=== PATIENT | female | born 1955 | race Caucasian/White ===

== ENCOUNTER → 2016-10-15 10:29 | Outpatient (CLI) | payer MEDICARE, MEDICAID | END | disposition home or self-care (01) | LOC: D.LABREF 10:29 | DX: I50.9 Heart failure, unspecified (principal) ==

== ENCOUNTER → 2017-09-23 10:03 | Outpatient (CLI) | payer MEDICARE, OTHER ==
[~2017-09-23 10:03] MED LIST: ATIVAN1 MG; BUMEX2 MG PO; FEMARA2.5 MG PO; FEXOFENADINE H180 MG PO; GLIMEPIRIDE2 MG; LIPITOR40 MG PO; LOPRESSOR25 MG PO; NORCO 7.5/325 T1 TA1 PO; TOUJEO SOL300 UNIT/1 SC; VITAMIN D250000 UNIT PO; ZOLOFT100 MG PO
[2017-11-20 13:20] VITALS: BMI 37.6
== END | disposition home or self-care (01) ==
LOC: D.LABREF 10:03
DX: J44.1 Chronic obstructive pulmonary disease with (acute) exacerbation (principal); I50.9 Heart failure, unspecified

== ENCOUNTER → 2017-10-14 12:08 | Outpatient (CLI) | payer MEDICARE, OTHER ==
--- NOTE | ~2017-10-14 | EC ---
PATIENT:HAZEL GARCIA DATE OF SERVICE: 10/14/17 SEX: F MEDICAL RECORD: [id number] DATE OF : 53 LOCATION:D.[facility] AGE OF PATIENT: 62 ADMISSION DATE: 10/14/17 REFERRING PHYSICIAN: INTERPRETING PHYSICIAN: CRISTIANE RAMON MD ECHOCARDIOGRAM REPORT ECHO CHARGES 4 ECHO COMPLETE Date: 10/14 CLINICAL DIAGNOSIS: ASSESS LV FUN AND EFFUSION ECHOCARDIOGRAPHIC MEASUREMENTS (adult normal given) AC root (d.<3.7cm) 3.4 cm LV Septum d (<1.2 cm> 1.7 cm Valve Excursion 1.0 cm LV Septum (systole) 1.8 cm Left Atria (s.<4.0cm> 4.1 cm LVPW d(<1.2cm) 1.4 cm RV (d.<2.3cm) 4.3 cm LVPW (sytole) 1.6 cm LV diastole(<5.6CM) 4.4 cm MV E-F(>70mm/sec) cm LV systole 3.3 cm LVOT Diameter 1.6 cm MV exc.(>10mm) cm Est.ejection fraction (50-75%) % DOPPLER: LVIT cm/sec A 105 cm/sec E 85.0 cm/sec LA cm/sec RVSP 36 mmHg LVOT 138 cm/sec AOP1/2T m/s Asc. 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 Ramon TAPE# PACS Pericardial Effusion Y DATE OF SERVICE: PROCEDURE: Transthoracic echocardiogram. FINDINGS: 1. Left ventricle has moderate concentric left ventricular hypertrophy with inflow characteristics consistent with diastolic dysfunction. Ejection fraction is 65%. There is no obvious regional wall motion abnormalities seen. It was a difficult study. Endocardial structures were not sharply visualized. 2. The right ventricle is dilated with good function. ECHOCARDIOGRAM REPORT [id number] JOSEHAZEL Hendricks 3. The left atrium is mildly dilated with good function. 4. The aortic valve has mild thickening. Mild aortic stenosis, peak pressure gradient of 20 mmHg with no obvious aortic insufficiency. 5. The mitral valve appears to be structurally normal. There is no obvious mitral regurgitation. 6. The tricuspid valve has mild tricuspid regurgitation. RVSP is 30-35 mmHg. 7. The pulmonic valve is not well visualized, but appears to be normal by Doppler interrogation. 8. Pericardium has a moderate pericardial effusion. There is no evidence of diastolic right atrial collapse or diastolic limitations on flow, although rest spirometry was not performed. By visual inspection, does not have any criteria of tamponade. TRANSINT:[id number] Voice Confirmation ID: [id number] DOCUMENT ID: [id number] CRISTIANE RAMON MD at 0942 CC: [id number] DICTATION DATE: 10/16/17 0953 MINE EXPERT: 10/16/17 1200 [facility] CLI 10/14/17 [facility] [address] [place] [address]
[2017-11-20 13:20] VITALS: BMI 37.6
== END | disposition home or self-care (01) ==
LOC: D.ECHO 12:08
DX: I50.9 Heart failure, unspecified (principal)

== ENCOUNTER 2017-11-18 10:30 | Inpatient (IN) | payer MEDICARE, OTHER ==
[~2017-11-18] VITALS: Ht 162.6 cm; Wt 100.0 kg
--- NOTE | ~2017-11-18 | OP ---
PATIENT NAME: HAZEL GARCIA MEDICAL RECORD: [id number] :53 LOCATION:D.[facility] D.[facility] ADMISSION DATE:11/19/17 SURGEON: ANDREW SON MD DATE OF OPERATION: 11/19/2017 SURGEON: Andrew Son MD BALANCE RECESSER: MAXX Salinas OPERATION PERFORMED: Subxiphoid pericardial window. PREOPERATIVE DIAGNOSIS: Pericardial effusion, symptomatic. POSTOPERATIVE DIAGNOSIS: Pericardial effusion, symptomatic. ANESTHESIA: General endotracheal anesthesia. ESTIMATED BLOOD LOSS: Minimal. COMPLICATIONS: None. SPECIMEN: Pericardial fluid for cytology and for cultures, cell counts, and chemistry. CONDITION: Stable. DISPOSITION: ICU. OPERATIVE FINDINGS: 1. Transesophageal echocardiography confirmed a relatively circumferential pericardial effusion and after complete drainage. 2. After drainage of the fluid, the systolic pressure increased by 30 mm. 3. A 1 x 1 cm pericardial biopsy performed. A total of 500 cc of proteinaceous material that congealed in the specimen tubes was removed completely and 2 separate drains were placed, one on the diaphragmatic surface and one anterior. Marcaine was used in the wound for local pain control. OPERATIVE INDICATION: Dyspnea, pericardial effusion, history of breast cancer. DESCRIPTION OF PROCEDURE: The patient was brought to the operating room. The patient was prepped and draped. Vertical incision of the xiphoid was made. A portion of the xiphoid was removed, upward pressure left costal margin was performed. The inferior surface of the diaphragm was identified and the fluid was aspirated. The pericardium was incised and a 1 x 1 cm pericardial biopsy was removed. Fluid was removed. Drains were placed through separate stab wounds and placed within the pericardium. Hemostasis was ensured. The fascia was closed. Subcutaneous tissue was closed with subcuticular. Dermabond was placed. The needle and sponge counts were correct. The patient went to the ICU in stable condition. TRANSINT:[id number] Voice Confirmation ID: [id number] DOCUMENT ID: [id number] OPERATIVE REPORT [id number] HAZEL GARCIA DANIEL W MD at 0751 CC: AKIRA CONTRERAS MD and KEVIN FLOOD MD [id number] DICTATION DATE: 11/19/17 267 [place] MATE: 11/19/17 1842 ADM IN [facility] [address] [place] [address]
--- NOTE | ~2017-11-18 | TEE ---
PATIENT:HAZEL GARCIA MEDICAL RECORD: [id number] LOCATION:D.M2 D.210 AGE OF PATIENT: 62 ADMISSION DATE: 11/19/17 SEX: F REFERRING PHYSICIAN: INTERPRETING PHYSICIAN: BOBY OLIVARES MD TRANSESOPHAGEAL ECHOCARDIOGRAM Date: 11/19/17 SHIRA CHARGE Y INDICATIONS: PERICARDIAL WINDOW PREMEDICATIONS: PATIENT'S RESPONSE PROCEDURE DOPPLER MEASUREMENTS: LVIT LA PA RA LVOT RVOT Asc. 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 Olivares Youth Accommodation Support Worker: 1 [place] BROWN COMMENTS: DATE OF SERVICE: PROCEDURE: Transesophageal echo evaluation during pericardial window. FINDINGS: 1. Left ventricular chamber size is within normal limits. Left ventricular systolic function is normal. Overall ejection fraction estimated at 55% to 60%. 2. Left atrium, right atrium, and right ventricle chamber sizes are within normal limits. TRANSESOPHAGEAL ECHOCARDIOGRAM REPORT [id number] HAZEL GARCIA 3. Valvular structures have normal structure and motion. 4. Large pericardial effusion is present. Pericardial window was successfully performed. TRANSINT:[id number] Voice Confirmation ID: [id number] DOCUMENT ID: [id number] at 0847 CC: [id number] DICTATION DATE: 11/20/17 1254 [place] ASSISTANT: 11/20/17 1259 ADM IN [facility] [address] [place] [address]
[2017-11-19] VITALS (14 sets, daily range): BP systolic 101–149; BP diastolic 43–66; BMI 37.6
[2017-11-19 09:53] LABS: BASOPHILS 0.3 % (0-2); EOSINOPHILS 2.4 % (0-7); HEMATOCRIT 36.2 % (36.0-48.0); HEMOGLOBIN 11.5 g/dL (12-16); IMMATURE GRANULOCYTES 0.1 % (0-5); LYMPHOCYTES 22.9 % (15-50); MCH 27.9 pg (26.0-34.0); MCHC 31.8 g/dL (31.0-37.0); MCV 87.9 fL (80.0-100.0); MEAN PLATELET VOLUME 12.1 fL (7.4-10.4); NEUTROPHILS 68.3 % (40-80); PLATELET COUNT 180 10x3/uL (130-400); RBC 4.12 10x6/uL (4.00-5.40); RDW 16.1 % (11.5-14.5); WBC 7.8 10x3/uL (4.8-10.8)
[2017-11-19 10:10] LABS: INR 1.09 (0.85-1.17); PROTIME 13.7 SECONDS (11.6-15.0)
[2017-11-19 10:11] LABS: APTT 29.3 SECONDS (22.8-39.4)
[2017-11-19 10:13] LABS: ALBUMIN 3.7 g/dL (3.4-5.0); BILIRUBIN - TOTAL 0.39 mg/dL (0.2-1.3); CALCIUM 9.8 mg/dL (8.5-10.1); CREATININE - SERUM 1.6 mg/dL (0.6-1.3); POTASSIUM - SERUM 3.9 mmol/L (3.5-5.1); PROTEIN - SERUM 7.5 g/dL (6.4-8.2)
[2017-11-19 10:15] LABS: ANION GAP 9.9 mmol/L (8-16)
[2017-11-19] MEDS ORDERED: LOPRESSOR25 MG PO (10:55)
[2017-11-19] MEDS ORDERED: FEXOFENADINE H180 MG PO (10:56)
[2017-11-19] MEDS ORDERED: FEMARA2.5 MG PO (10:56)
[2017-11-19] MEDS ORDERED: BUMEX2 MG PO (10:57)
[2017-11-19] MEDS ORDERED: ZOLOFT100 MG PO (10:58)
[2017-11-19] MEDS ORDERED: GLIMEPIRIDE2 MG (10:58)
[2017-11-19] MEDS ORDERED: LIPITOR40 MG PO (10:59)
[2017-11-19] MEDS ORDERED: TOUJEO SOL300 UNIT/1 SC (11:00)
[2017-11-19] MEDS ORDERED: VITAMIN D250000 UNIT PO (11:01)
[2017-11-19] MEDS ORDERED: NORCO 7.5/325 T1 TA1 PO (11:02)
[2017-11-19] MEDS ORDERED: ATIVAN1 MG (11:03)
[2017-11-19 17:54] LABS: EOS BF 3 %; MACROPHAGES BF 12 %; NEUT - BF 32 %
[2017-11-20] VITALS (14 sets, daily range): BP systolic 95–131; BP diastolic 42–83; Ht 162.6 cm; Wt 100.0 kg
[2017-11-20 04:44] LABS: HEMOGLOBIN 11.6 g/dL (12-16); MCHC 31.4 g/dL (31.0-37.0); MCV 89.2 fL (80.0-100.0); MEAN PLATELET VOLUME 12.8 fL (7.4-10.4); RBC 4.15 10x6/uL (4.00-5.40); RDW 16.6 % (11.5-14.5)
[2017-11-20 05:02] LABS: WBC 16.1 10x3/uL (4.8-10.8)
[2017-11-20 05:12] LABS: ALBUMIN 3.1 g/dL (3.4-5.0); ANION GAP 12.9 mmol/L (8-16); BILIRUBIN - TOTAL 0.48 mg/dL (0.2-1.3); CALCIUM 8.7 mg/dL (8.5-10.1); CARBON DIOXIDE 33.5 mmol/L (21.0-32.0); CREATININE - SERUM 1.6 mg/dL (0.6-1.3); POTASSIUM - SERUM 3.4 mmol/L (3.5-5.1); PROTEIN - SERUM 6.8 g/dL (6.4-8.2)
[2017-11-20 15:15] LABS: APPEARANCE CLEAR (CLEAR); BILIRUBIN NEGATIVE (NEGATIVE); COLOR YELLOW (YELLOW); GLUCOSE NEGATIVE (NEGATIVE); KETONE NEGATIVE (NEGATIVE); NITRITE NEGATIVE (NEGATIVE); PROTEIN NEGATIVE (NEGATIVE); SPECIFIC GRAVITY 1.015 (1.005-1.020); UROBILINOGEN NORMAL (NORMAL)
[2017-11-20 16:08] LABS: ANION GAP 12.3 mmol/L (8-16); CALCIUM 8.9 mg/dL (8.5-10.1); CARBON DIOXIDE 34.4 mmol/L (21.0-32.0); POTASSIUM - SERUM 3.7 mmol/L (3.5-5.1)
[2017-11-20 21:08] LABS: AFB SPECIMEN PROCESSING Not Indicated (())
[2017-11-21 00:05] VITALS: BP 107/60
[2017-11-21 04:39] VITALS: BP 89/42
[2017-11-21 05:51] LABS: HEMATOCRIT 32.3 % (36.0-48.0); HEMOGLOBIN 10.1 g/dL (12-16); MCH 27.4 pg (26.0-34.0); MCHC 31.3 g/dL (31.0-37.0); MCV 87.5 fL (80.0-100.0); MEAN PLATELET VOLUME 11.9 fL (7.4-10.4); RBC 3.69 10x6/uL (4.00-5.40); RDW 16.8 % (11.5-14.5)
[2017-11-21 05:53] LABS: WBC 11.1 10x3/uL (4.8-10.8)
[2017-11-21 06:21] LABS: ALBUMIN 2.8 g/dL (3.4-5.0); ANION GAP 8.9 mmol/L (8-16); BILIRUBIN - TOTAL 0.6 mg/dL (0.2-1.3); CARBON DIOXIDE 33.9 mmol/L (21.0-32.0); CREATININE - SERUM 2.4 mg/dL (0.6-1.3); POTASSIUM - SERUM 3.8 mmol/L (3.5-5.1); PROTEIN - SERUM 6.3 g/dL (6.4-8.2)
[2017-11-21 08:02] VITALS: BP 127/64
[2017-11-21 11:11] VITALS: BP 94/49
[2017-11-21 13:17] LABS: FUNGUS STAIN Final report (())
[2017-11-21 15:19] VITALS: BP 118/54
[2017-12-17 06:15] LABS: FUNGUS MYCOLOGY CULTURE Final report (())
[2018-01-09 13:20] LABS: ACID FAST CULTURE Negative (()); ACID FAST SMEAR Negative (())
== END 2017-11-21 16:12 | disposition home or self-care (01) | DRG 272 ==
LOC: D.SDCHOLD 10:30 → D.ICU 11-19 08:10 → D.SDCHOLD 11-19 10:30 → D.CVICU 11-19 15:19 → D.ICU 11-20 11:36 → D.M2 11-20 20:43
PROVIDERS: Internal Medicine Hematology & Oncology; Thoracic Surgery (Cardiothoracic Vascular Surgery)
PROC: 0W9D00Z Drainage of Pericardial Cavity with Drainage Device, Open Approach (ICD-10-PCS; 2017-11-19)
PROC: 02BN0ZX Excision of Pericardium, Open Approach, Diagnostic (ICD-10-PCS; 2017-11-19)
PROC: B245ZZ4 Ultrasonography of Left Heart, Transesophageal (ICD-10-PCS; principal; 2017-11-19 13:00)
DX: I31.3 Pericardial effusion (noninflammatory) (principal); E11.9 Type 2 diabetes mellitus without complications; I10 Essential (primary) hypertension; F41.8 Other specified anxiety disorders; K21.9 Gastro-esophageal reflux disease without esophagitis; E66.01 Morbid (severe) obesity due to excess calories; Z68.37 Body mass index [BMI] 37.0-37.9, adult; R33.9 Retention of urine, unspecified; R94.4 Abnormal results of kidney function studies; D72.829 Elevated white blood cell count, unspecified; Z85.3 Personal history of malignant neoplasm of breast; Z87.891 Personal history of nicotine dependence

== ENCOUNTER → 2017-11-24 19:38 | Outpatient (CLI) | payer MEDICARE, OTHER ==
[2017-11-20 13:20] VITALS: BMI 37.6
[2017-11-24 20:17] LABS: BASOPHILS 0.2 % (0-2); EOSINOPHILS 3.5 % (0-7); HEMATOCRIT 34.3 % (36.0-48.0); HEMOGLOBIN 10.9 g/dL (12-16); IMMATURE GRANULOCYTES 0.2 % (0-5); LYMPHOCYTES 18.8 % (15-50); MCH 28.1 pg (26.0-34.0); MCHC 31.8 g/dL (31.0-37.0); MCV 88.4 fL (80.0-100.0); MEAN PLATELET VOLUME 13.3 fL (7.4-10.4); MONOCYTES 5.8 % (2-11); NEUTROPHILS 71.5 % (40-80); RBC 3.88 10x6/uL (4.00-5.40); RDW 16.2 % (11.5-14.5); WBC 8.2 10x3/uL (4.8-10.8)
[2017-11-24 20:24] LABS: PLATELET COUNT 181 10x3/uL (130-400)
[2017-11-24 20:28] LABS: ANION GAP 10.3 mmol/L (8-16); CALCIUM 9.1 mg/dL (8.5-10.1); CARBON DIOXIDE 36.1 mmol/L (21.0-32.0); CREATININE - SERUM 1.1 mg/dL (0.6-1.3); POTASSIUM - SERUM 4.4 mmol/L (3.5-5.1)
== END | disposition home or self-care (01) ==
LOC: D.LABREF 19:38
PROVIDERS: Internal Medicine Cardiovascular Disease
DX: I50.9 Heart failure, unspecified (principal); I31.4 Cardiac tamponade

== ENCOUNTER → 2017-11-27 14:28 | Outpatient (CLI) | payer MEDICARE, OTHER ==
[2017-11-20 13:20] VITALS: BMI 37.6
[2017-11-27 14:45] LABS: HEMATOCRIT 34.4 % (36.0-48.0); HEMOGLOBIN 10.6 g/dL (12-16); MCHC 30.8 g/dL (31.0-37.0); MCV 87.8 fL (80.0-100.0); MEAN PLATELET VOLUME 10.7 fL (7.4-10.4); RBC 3.92 10x6/uL (4.00-5.40); RDW 16.4 % (11.5-14.5); WBC 7.9 10x3/uL (4.8-10.8)
[2017-11-27 14:58] LABS: ALBUMIN 2.9 g/dL (3.4-5.0); BILIRUBIN - TOTAL 0.3 mg/dL (0.2-1.3); CALCIUM 9.1 mg/dL (8.5-10.1); CARBON DIOXIDE 37.7 mmol/L (21.0-32.0); CREATININE - SERUM 1.1 mg/dL (0.6-1.3); POTASSIUM - SERUM 3.7 mmol/L (3.5-5.1); PROTEIN - SERUM 6.9 g/dL (6.4-8.2)
== END | disposition home or self-care (01) ==
LOC: D.LAB 09:30 → D.RAD 10:00 → D.LAB 14:28
PROVIDERS: Internal Medicine Cardiovascular Disease
DX: I31.3 Pericardial effusion (noninflammatory) (principal); D64.9 Anemia, unspecified

== ENCOUNTER → 2017-12-08 21:55 | Outpatient (CLI) | payer MEDICARE, OTHER ==
[2017-11-20 13:20] VITALS: BMI 37.6
[2017-12-08 22:21] LABS: BASOPHILS 0.6 % (0-2); EOSINOPHILS 2.1 % (0-7); HEMOGLOBIN 12.1 g/dL (12-16); IMMATURE GRANULOCYTES 0.2 % (0-5); LYMPHOCYTES 23.2 % (15-50); MCH 27.2 pg (26.0-34.0); MCV 87.6 fL (80.0-100.0); MEAN PLATELET VOLUME 12.4 fL (7.4-10.4); MONOCYTES 6.3 % (2-11); NEUTROPHILS 67.6 % (40-80); RBC 4.45 10x6/uL (4.00-5.40); RDW 16.7 % (11.5-14.5); WBC 10.2 10x3/uL (4.8-10.8)
[2017-12-08 22:26] LABS: PLATELET COUNT 290 10x3/uL (130-400)
[2017-12-08 22:49] LABS: ANION GAP 11.6 mmol/L (8-16); CALCIUM 9.3 mg/dL (8.5-10.1); CARBON DIOXIDE 31.6 mmol/L (21.0-32.0); CREATININE - SERUM 1.2 mg/dL (0.6-1.3); POTASSIUM - SERUM 4.2 mmol/L (3.5-5.1)
== END | disposition home or self-care (01) ==
LOC: D.LABREF 21:55
PROVIDERS: Internal Medicine Cardiovascular Disease
DX: I50.9 Heart failure, unspecified (principal)

== ENCOUNTER 2018-03-18 10:24 | Outpatient (CLI) | payer MEDICARE, OTHER ==
[~2018-03-18] VITALS: Ht 162.6 cm; Wt 90.5 kg
[2018-03-18 10:51] LABS: BASOPHILS 0.4 % (0-2); EOSINOPHILS 2.4 % (0-7); HEMATOCRIT 32.9 % (36.0-48.0); HEMOGLOBIN 10.2 g/dL (12-16); LYMPHOCYTES 27.3 % (15-50); MCH 23.9 pg (26.0-34.0); MEAN PLATELET VOLUME 10.6 fL (7.4-10.4); MONOCYTES 2.8 % (2-11); NEUTROPHILS 67.1 % (40-80); RBC 4.27 10x6/uL (4.00-5.40); RDW 18.6 % (11.5-14.5); WBC 5.4 10x3/uL (4.8-10.8)
[2018-03-18 10:52] LABS: PLATELET COUNT 185 10x3/uL (130-400)
[2018-03-18 10:57] LABS: ANION GAP 12.6 mmol/L (8-16); APTT 27.1 SECONDS (22.8-39.4); CALCIUM 8.9 mg/dL (8.5-10.1); CARBON DIOXIDE 28.5 mmol/L (21.0-32.0); INR 1.03 (0.85-1.17); POTASSIUM - SERUM 4.1 mmol/L (3.5-5.1); PROTIME 13.1 SECONDS (11.6-15.0)
[2018-03-18 11:16] VITALS: BP 129/67; Ht 162.6 cm; Wt 90.5 kg
== END 2018-03-18 17:00 | disposition home or self-care (01) ==
LOC: D.SP 10:24
PROVIDERS: Radiology Diagnostic Radiology
DX: D64.9 Anemia, unspecified (principal); Z85.3 Personal history of malignant neoplasm of breast; Z01.812 Encounter for preprocedural laboratory examination